=== PATIENT | female | born 1995 | race Caucasian/White ===

== ENCOUNTER 2018-04-13 16:54 | Emergency (ER) | payer OTHER ==
[~2018-04-13] VITALS: Ht 157.5 cm; Wt 97.5 kg
[~2018-04-13 16:54] MED LIST: Bactrim Ds Tab1 EACH PO; GUAI600T33 PO; HYDACE5 PO; IBUP400 PO; IBUP600 PO; Motrin600 MG PO; NAPR375 PO; NITR100CA PO; PHENA200 PO; PRODEXEL PO; SULTRIDS PO
[2018-04-13 17:48] LABS: BASOPHILS ABSOLUTE AUTO 0.04 K/mm3 (0.00-0.23); BASOPHILS PERCENT AUTO 0 % (0-2); EOSINOPHILS ABSOLUTE AUTO 0.02 K/mm3 (0.00-0.68); EOSINOPHILS PERCENT AUTO 0 % (0-6); Hematocrit 38.9 % (33.0-51.0); Hemoglobin 13.1 g/dL (11.5-16.0); IMMATURE GRAN ABSOLUTE AUTO 0.03 K/mm3 (0.00-0.10); IMMATURE GRAN PERCENT AUTO 0 % (0-1); LYMPHOCYTES ABSOLUTE AUTO 0.68 K/mm3 (0.84-5.20); LYMPHOCYTES PERCENT AUTO 6 % (21-46); MONOCYTES ABSOLUTE AUTO 0.42 K/mm3 (0.16-1.47); MONOCYTES PERCENT AUTO 4 % (4-13); Mean Corpuscular HGB Conc 33.7 g/dL (31.5-36.5); Mean Corpuscular Volume 86 fL (80-100); Mean Platelet Volume 9.7 fL (9.1-12.4); NEUTROPHILS ABSOLUTE AUTO 10.71 K/mm3 (1.96-9.15); NEUTROPHILS PERCENT AUTO 90 % (41-73); Platelet Count 287 K/mm3 (150-400); RDW Coefficient Variation 12.5 % (11.7-14.2); RDW Standard Deviation 39.2 fL (35.1-46.3); Red Blood Cell Count 4.51 M/mm3 (3.80-5.20)
[2018-04-13 18:07] LABS: Alanine Aminotransfer (ALT/SGP 15 U/L (12-78); Albumin, Blood 3.6 g/dL (3.4-5.0); Albumin/Globulin Ratio 0.9 (0.8-1.8); Alk Phos 78 U/L (50-136); Anion Gap 10 mmol/L (6-16); Aspartate Aminotrans (AST/SGOT 18 U/L (12-37); Bilirubin, Total 0.3 mg/dL (0.1-1.0); Blood Urea Nitrogen 8 mg/dL (8-24); CO2, Blood 21 mmol/L (21-32); Calcium, Blood 8.9 mg/dL (8.5-10.1); Chloride, Blood 107 mmol/L (98-108); Creatinine, Blood 0.47 mg/dL (0.40-1.00); Globulin, Blood 3.8 g/dL (2.2-4.0); Glomerular Filtration Rate >60 (60-); Glucose, Blood 94 mg/dL (70-99); Potassium, Blood 3.6 mmol/L (3.5-5.5); Sodium, Blood 138 mmol/L (136-145); Total Protein, Blood 7.4 g/dL (6.4-8.2)
[2018-04-13 18:27] LABS: Source, Urine Clean Catch
[2018-04-13 18:32] LABS: Appearance, Urine Clear (Clear); Bilirubin, Urine Neg (Neg); Blood, Urine 2+ (Neg); Color, Urine Yellow (P-Yellow); Glucose Qualitative, Urine Neg (Neg); Ketones, Urine 4+ (Neg); Leukocyte Esterase, Urine Neg (Neg); Nitrite, Urine Neg (Neg); Protein, Urine 2+ (Neg); Specific Gravity, Urine 1.025 (1.003-1.022); Urobilinogen, Urine NORM (Normal)
[2018-04-13 18:42] LABS: White Blood Cells, Urine 0-2 /hpf (0-5)
[2018-04-13 18:43] LABS: Bacteria Rare /hpf; Red Blood Cells, Urine 0-2 /hpf (0-2); Squamous Epithelial Cells Few /hpf (Few)
[2018-04-13] MEDS ORDERED: ONDA4ODT MM (19:14)
== END 2018-04-13 19:33 | disposition home or self-care (01) ==
LOC: ER 16:54
PROVIDERS: Emergency Medicine; Physician Assistant
DX: O99.611 Diseases of the digestive system complicating pregnancy, first trimester (principal); K52.9 Noninfective gastroenteritis and colitis, unspecified; O99.281 Endocrine, nutritional and metabolic diseases complicating pregnancy, first trimester; E86.0 Dehydration; Z79.899 Other long term (current) drug therapy; Z3A.11 11 weeks gestation of pregnancy
CPT/HCPCS: 36415; 80053; 81001; 83690; 85025; 96361; 96374; 99284-25; J2405; J7030

== ENCOUNTER → 2018-04-15 | Outpatient (CLI) | payer OTHER ==
[~2018-04-15] MED LIST changes: +ONDA4ODT MM
[2018-04-15 10:27] LABS: Source, Urine Clean Catch
[2018-04-15 12:40] LABS: Bilirubin, Urine Neg (Neg); Blood, Urine 1+ (Neg); Glucose Qualitative, Urine Neg (Neg); Ketones, Urine Neg (Neg); Leukocyte Esterase, Urine Neg (Neg); Nitrite, Urine Neg (Neg); Protein, Urine Neg (Neg); Specific Gravity, Urine 1.015 (1.003-1.022); Urobilinogen, Urine 1+ (Normal)
[2018-04-15 13:00] LABS: Appearance, Urine Clear (Clear); Bacteria Not Seen /hpf; Color, Urine Yellow (P-Yellow); Red Blood Cells, Urine 0-2 /hpf (0-2); Squamous Epithelial Cells Few /hpf (Few); White Blood Cells, Urine Not Seen /hpf (0-5)
[2018-04-15 14:15] LABS: Candida species (DNA Probe) Negative (NEGATIVE); G. vaginalis (DNA Probe) Negative (NEGATIVE); T. vaginalis (DNA Probe) Negative (NEGATIVE)
== END ==
LOC: LAB 10:26 → LAB SHORT 10:26 → EDSTATUS 14:15
PROVIDERS: Advanced Practice Midwife
DX: O23.599 Infection of other part of genital tract in pregnancy, unspecified trimester (principal)
CPT/HCPCS: 81001; 87086; 87480; 87510; 87660; G0123

== ENCOUNTER 2018-11-15 17:52 | Emergency (ER) | payer OTHER ==
[~2018-11-15] VITALS: Ht 157.5 cm; Wt 106.6 kg
[2018-11-15] MEDS ORDERED: IBUP600 PO (19:24)
== END 2018-11-15 19:32 | disposition home or self-care (01) ==
LOC: ER 17:52
DX: M79.89 Other specified soft tissue disorders (principal)
CPT/HCPCS: 82947; 93971; 99284-25

== ENCOUNTER → 2019-10-28 | Outpatient (CLI) | payer OTHER ==
[~2019-10-28] MED LIST changes: +ABAT250V; +ACET500 PO; +Aspir 8181 MG PO; +IBUP800 PO; +PRENATAL TABLE1 EAC2 PO; +ROXICODONE5 MG PO
== END | disposition home or self-care (01) ==
LOC: LAB 10:00 → LAB SHORT 10:00
DX: O09.93 Supervision of high risk pregnancy, unspecified, third trimester (principal)
CPT/HCPCS: 87081; 87653

== ENCOUNTER 2019-11-16 14:29 | Inpatient (IN) | payer OTHER ==
[~2019-11-16] VITALS: Ht 157.5 cm; Wt 112.0 kg
[~2019-11-16 14:29] MED LIST changes: -ABAT250V; -ACET500 PO; -Aspir 8181 MG PO; -IBUP800 PO; -PRENATAL TABLE1 EAC2 PO; -ROXICODONE5 MG PO
[2019-11-18] MEDS ORDERED: Aspir 8181 MG PO (12:13)
[2019-11-18] MEDS ORDERED: PRENATAL TABLE1 EAC2 PO (12:14)
[2019-11-18] MEDS ORDERED: ABAT250V (12:14)
[2019-11-19 06:10] LABS: BASOPHILS ABSOLUTE AUTO 0.04 K/mm3 (0.00-0.23); BASOPHILS PERCENT AUTO 0 % (0-2); EOSINOPHILS ABSOLUTE AUTO 0.09 K/mm3 (0.00-0.68); EOSINOPHILS PERCENT AUTO 1 % (0-6); Hematocrit 39.4 % (33.0-51.0); Hemoglobin 12.9 g/dL (11.5-16.0); IMMATURE GRAN ABSOLUTE AUTO 0.04 K/mm3 (0.00-0.10); IMMATURE GRAN PERCENT AUTO 0 % (0-1); LYMPHOCYTES ABSOLUTE AUTO 2.46 K/mm3 (0.84-5.20); LYMPHOCYTES PERCENT AUTO 23 % (21-46); MONOCYTES ABSOLUTE AUTO 0.66 K/mm3 (0.16-1.47); MONOCYTES PERCENT AUTO 6 % (4-13); Mean Corpuscular HGB 27.3 pg (26.0-34.0); Mean Corpuscular HGB Conc 32.7 g/dL (31.5-36.5); Mean Corpuscular Volume 84 fL (80-100); Mean Platelet Volume 10.6 fL (9.1-12.4); NEUTROPHILS PERCENT AUTO 70 % (41-73); Platelet Count 257 K/mm3 (150-400); RDW Coefficient Variation 14.7 % (11.7-14.2); RDW Standard Deviation 43.8 fL (35.1-46.3); Red Blood Cell Count 4.72 M/mm3 (3.80-5.20); White Blood Cell Count 10.89 K/mm3 (4.00-11.30)
--- NOTE | 2019-11-19 09:25 | NUR ---
11/19/19 0925 Claudia Adam DELIVERY OF VIABLE MALE AT 0807, WEIGHT 6 LBS 15 OUNCES. APGARS 9/9. PLACENTA MANUALLY REMOVED, COMPLETE. CORD BLOOD SAMPLE SENT WITH BABY'S RN, JULIO TIERNEY. BOWEL FOUND TO BE ADHESED TO ABD WALL. GENERAL SURGEON REQUESTED TO OR. AT 0837 DR. DAVIDSON ARRIVED AND SCRUBBED INTO THE CASE AND LYSED ADHESSION FROM ABD WALL. SEE SURGEON'S OPERATIVE REPORT. DR. DAVIDSON OUT OF OR AT 0900.
[2019-11-19 12:39] LABS: BASOPHILS ABSOLUTE AUTO 0.02 K/mm3 (0.00-0.23); BASOPHILS PERCENT AUTO 0 % (0-2); EOSINOPHILS ABSOLUTE AUTO 0.01 K/mm3 (0.00-0.68); EOSINOPHILS PERCENT AUTO 0 % (0-6); Hematocrit 33.5 % (33.0-51.0); Hemoglobin 10.9 g/dL (11.5-16.0); IMMATURE GRAN ABSOLUTE AUTO 0.04 K/mm3 (0.00-0.10); IMMATURE GRAN PERCENT AUTO 0 % (0-1); LYMPHOCYTES ABSOLUTE AUTO 1.27 K/mm3 (0.84-5.20); LYMPHOCYTES PERCENT AUTO 8 % (21-46); MONOCYTES PERCENT AUTO 1 % (4-13); Mean Corpuscular HGB 27.7 pg (26.0-34.0); Mean Corpuscular HGB Conc 32.5 g/dL (31.5-36.5); Mean Corpuscular Volume 85 fL (80-100); Mean Platelet Volume 10.3 fL (9.1-12.4); NEUTROPHILS ABSOLUTE AUTO 13.79 K/mm3 (1.96-9.15); NEUTROPHILS PERCENT AUTO 90 % (41-73); Platelet Count 232 K/mm3 (150-400); RDW Coefficient Variation 14.6 % (11.7-14.2); RDW Standard Deviation 45.7 fL (35.1-46.3); Red Blood Cell Count 3.93 M/mm3 (3.80-5.20); White Blood Cell Count 15.33 K/mm3 (4.00-11.30)
--- NOTE | 2019-11-19 12:41 | NUR ---
1220: PT CALLED WITH C/O INCREASED PAIN AND FEELING OF INCREASED VAGINAL BLEEDING. LARGE CLOT NOTED, FUNDUS FIRM WITH MASSAGE. CLOT 533 GM NOTED. LOCHIA LIGHT WITH MASSAGE. IV NS WITH PITOCIN STARTED 1225: DR. BLAKE UPDATED AND ORDERS TO GIVE IM METHERGINE AND CYTOTEC CA NOW. MEDS GIVEN. FUNDUS FIRM WITH MASSAGE. FEW SMALL CLOTS NOTED WITH MASSAGE. FENTANTYL 25 MCG IV FOR PAIN. 1230: Rajinder TIERNEY RN R/T PT CARE.
--- NOTE | 2019-11-19 13:43 | NUR ---
DR. ABDUL UPDATED AND GIVEN TOTAL OF QBL + EBL OF 1480 AT 1330. 2ND IV STARTED IN THE RT AC 18G. PT ALERT AND ORIENTED. VITALS STABLE. DR. ABDUL REPORTED THAT SHE WOULD BE DOWN IN BETWEEN CASES TO ASSESS PT AND GIVE MORE ORDERS IF NEEDED.
--- NOTE | 2019-11-19 14:25 | NUR ---
DR. ABDUL AT BEDSIDE AT 1425. PROVIDER PERFORMED A CERVICAL ASSESSMENT WITH FUNDAL MASSAGE AND CURRETTE SCRAPING OF THE ENDOMETRIUM AT THE BEDSIDE . ONE LARGE CLOT WAS MEASURED AT 200GM. SECOND STAGE OF THE HEMORRHAGE ASSESSMENT/INTERVENTION ACTIVATED. AT 1425 TOTAL EBL + QBL MEASURED AT 1772. 3RD BAG OF PITOCIN ORDERED AT A RATE OF 500ML/HR. ANCEF 2GM ORDERED WELL A ONE TIME DOSE. PT ALERT AND ORIENTED x3, VITALS WNL. FUNDUS FIRM 2 FINGERBREADTHS BELOW UMBILICUS, BLEEDING SCANT. WILL CONTINUE TO MONITOR AND NOTIFY PROVIDER IF NEEDED.
--- NOTE | 2019-11-19 15:34 | NUR ---
1215 Q- [id number] [address] [facility]- 247GM [address] [facility]- [id number] [facility]- 200GM
[2019-11-19 16:06] LABS: BASOPHILS ABSOLUTE AUTO 0.02 K/mm3 (0.00-0.23); BASOPHILS PERCENT AUTO 0 % (0-2); EOSINOPHILS ABSOLUTE AUTO 0.01 K/mm3 (0.00-0.68); EOSINOPHILS PERCENT AUTO 0 % (0-6); Hematocrit 32.4 % (33.0-51.0); Hemoglobin 10.4 g/dL (11.5-16.0); IMMATURE GRAN ABSOLUTE AUTO 0.06 K/mm3 (0.00-0.10); IMMATURE GRAN PERCENT AUTO 0 % (0-1); LYMPHOCYTES ABSOLUTE AUTO 1.33 K/mm3 (0.84-5.20); LYMPHOCYTES PERCENT AUTO 8 % (21-46); MONOCYTES ABSOLUTE AUTO 0.68 K/mm3 (0.16-1.47); MONOCYTES PERCENT AUTO 4 % (4-13); Mean Corpuscular HGB 27.3 pg (26.0-34.0); Mean Corpuscular HGB Conc 32.1 g/dL (31.5-36.5); Mean Corpuscular Volume 85 fL (80-100); Mean Platelet Volume 10.8 fL (9.1-12.4); NEUTROPHILS PERCENT AUTO 87 % (41-73); Platelet Count 237 K/mm3 (150-400); RDW Coefficient Variation 14.6 % (11.7-14.2); RDW Standard Deviation 45.1 fL (35.1-46.3); Red Blood Cell Count 3.81 M/mm3 (3.80-5.20)
--- NOTE | 2019-11-20 00:30 | NUR ---
11/19/[address] Chao re: pt c/o RUQ pain. pt states her pain comes and goes and starts high and goes down to her hip area. given a kpad for comfort, and Dr Chao unconcerned that it was anything surgical
[2019-11-20 05:26] LABS: Hematocrit 24.8 % (33.0-51.0); Hemoglobin 8.1 g/dL (11.5-16.0); Mean Corpuscular HGB 27.9 pg (26.0-34.0); Mean Corpuscular HGB Conc 32.7 g/dL (31.5-36.5); Mean Corpuscular Volume 86 fL (80-100); Mean Platelet Volume 10.3 fL (9.1-12.4); Platelet Count 180 K/mm3 (150-400); RDW Coefficient Variation 14.8 % (11.7-14.2); RDW Standard Deviation 45.7 fL (35.1-46.3); White Blood Cell Count 11.64 K/mm3 (4.00-11.30)
--- NOTE | 2019-11-20 09:40 | NUR ---
RN ROUNDED TO HELP W/ . PT HAS HISTORY OF PUMPING FOR 30 WEEK NB. PT HAS STARTED PUMPING AND BOTTLE FEEDING. STATES SHE HAS LATCHED NB A FEW TIMES BUT HAS BEEN MOSTLY PUMPING AND BOTTLE FEEDING. PT ABLE TO PUMP COLOSTRUM EASILY FROM LEFT BREAST, PUMP NOT PULLING MILK FROM RIGHT BREAST. PT HAS BEEN ABLE TO HAND EXPRESS COLOSTRUM FROM RIGHT BREAST. RN TALKED W/ PT ABOUT LATCHING NB AND CORRECTLY PLACING NB, FURTHER HELP W/ LATCHING OFFERED IF PT DESIRES.
[2019-11-20] MEDS ORDERED: ACET500 PO (11:09)
[2019-11-20] MEDS ORDERED: ROXICODONE5 MG PO (11:09)
[2019-11-20] MEDS ORDERED: IBUP800 PO (11:09)
--- NOTE | 2019-11-20 13:02 | NUR ---
1145 PT SITTING UP AT SIDE OF BED, HAS PAIN ON THE RT SIDE BELOW HER RIB CAGE THAT CAN RADIATE DOWN TO HER HIP, JUST MOVING HER RIGHT LEG HURTS, ADJUSTED HER ABD BINDER BEFORE SITTING UP, HER RIGHT SIDE WAS PAINFUL, HER INCISION AND LEFT SIDE NOT PAINFUL AT ALL, IT IS A SHARP PAIN THAT CAUSES THE PT TO HOLLAR OUT. 1215 PT BACK TO BED, WAS VERY PAINFUL FOR PT, PT HAS NO INCISION PAIN, NO PAIN ON LT SIDE, BUT HER RIGHT SIDE WITH MOVING IS A SHARP PAIN THAT CAUSES HER TO HOLLAR OUT. PT COULD NOT MOVE HER RT LEG ON TO THE BED, THE PT HAD RN MOVE HER LEG, SHE HOLLARED OUT IN PAIN FOR THE RT SIDE ONLY, NOT PAIN ON THE LEFT SIDE, AFTER GETTING PT IN BED GOT ANOTHER RN TO HELP MOVE HER UP, ONLY PAIN PT REPORTED AND HOLLERED ABOUT WAS ON THE RIGHT SIDE, JUST THE PRESURE OF THE TORREZ TO SCOOT HER UP WAS VERY PAINFUL TO THE PATIENT. RN PALPATED PT LT SIDE AND NICE AND SOFT, NO PAIN WITH LIGHT PALPATION, PALPATED THE PT RT SIDE, VERY PAINFUL, MAKES PT SUCK IN HER BREATH, HOLLAR IN PAIN, JUST BENDING HER RT LEG UP TO IS A SHARP PAINFUL SENSATION. NO BRUISING SEEN, HAS BREATH SOUNDS BILATERALLY, HAS BOWEL TONES IN ALL 4 QUADS. REPORTS STILL PASSING SMALL AMOUNTS OF GAS. 1252 DR MCCARTHY NOTIFIED, NEW ORDERS TO TRY FLEXERIL 5MG PO Q 8 PRN PAIN/MUSCLES SPASM.
--- NOTE | 2019-11-20 16:20 | NUR ---
pain in pt side is a little better, able to palpate on rt side, it is painful for pt, but she doesnt hollar out and hold her breath like before, SO will be here in 30-40 minutes, then will get pt up to shower, have a shower in shower.
--- NOTE | 2019-11-20 18:27 | NUR ---
pt had 3 steri strips on only, placed more across incision, rt side is better but had burning pain with getting up and down. if pt holds that side of her belly up slightly and we place the binder on, pt reports feels a little better. pt had no lightheadedness, no dizzyness or ringing her in her ears
--- NOTE | 2019-11-21 01:17 | NUR ---
11-21-19 0045 pt up to BR with minimal assistance of 1 RN then stood at sink, brushed her hair and teeth and returned to bed. tolerated very well
--- NOTE | 2019-11-21 07:43 | NUR ---
Pt pumping currently. Denies needs or complaints at this time. Will call when finished eating for assessment.
--- NOTE | 2019-11-22 10:37 | NUR ---
GETTING READY TO DC HOME, FOB HERE FOR RIDE, PULLING CAR AROUND, PT SEEMS EXCITED TO GO HOME,UP AMB IN ROOM, PT HAS BEEN RELUCTANT TO GETUP AND MOVE AROUND, BUT UP AND SMILING WITH SO IN ROOM, GETTING BABY DRESSED.
== END 2019-11-22 10:40 | disposition home or self-care (01) | DRG 787 ==
LOC: BC 11-19 05:21
PROVIDERS: Surgery; ADMIT Obstetrics & Gynecology
PROC: 0W3J3ZZ Control Bleeding in Pelvic Cavity, Percutaneous Approach (ICD-10-PCS; 2019-11-19)
PROC: 10D00Z1 Extraction of Products of Conception, Low, Open Approach (ICD-10-PCS; principal; 2019-11-19 07:30)
PROC: 0DN80ZZ Release Small Intestine, Open Approach (ICD-10-PCS; 2019-11-19 07:30)
DX: O40.3XX0 Polyhydramnios, third trimester, not applicable or unspecified (principal); O71.5 Other obstetric injury to pelvic organs; O72.1 Other immediate postpartum hemorrhage; D62 Acute posthemorrhagic anemia; O90.81 Anemia of the puerperium; O34.211 Maternal care for low transverse scar from previous cesarean delivery; Z3A.37 37 weeks gestation of pregnancy; Z37.0 Single live birth; O99.62 Diseases of the digestive system complicating childbirth; K66.0 Peritoneal adhesions (postprocedural) (postinfection); Z87.51 Personal history of pre-term labor; O99.212 Obesity complicating pregnancy, second trimester; E66.01 Morbid (severe) obesity due to excess calories
CPT/HCPCS: 36415; 85025; 85027; 86850; 86900; 86901; J0690; J1100; J1885; J2210; J2250; J2405; J2590; J2704; J2765; J3010; J7120